=== PATIENT | female | born 1980 | race Caucasian/White ===

== ENCOUNTER → 2016-10-28 | Outpatient (CLI) | payer OTHER ==
[~2016-10-28] MED LIST: BCPILLS PO; BUPR-83 PO; MISCCAP80; MTR600X PO; OMEG10007 PO; OXYC-57 PO; PRENTAB26 PO; RABE20TA5 PO; ZNTT/150 PO
[2016-10-28 16:40] LABS: HEMATOCRIT 36.3 % (37-47)
[2016-10-28 19:29] LABS: GTGD 50 Grams
== END | disposition home or self-care (01) ==
LOC: C.LAB1850 15:25
PROVIDERS: ATTEND Obstetrics & Gynecology
DX: O09.513 Supervision of elderly primigravida, third trimester (principal); Z3A.00 Weeks of gestation of pregnancy not specified

== ENCOUNTER → 2016-10-28 | Outpatient (CLI) | payer OTHER ==
[2016-10-28 20:18] LABS: URINE APPEARANCE CLEAR (CLEAR); URINE BILIRUBIN NEG (NEG); URINE COLOR YELLOW; URINE EPITHELIAL CELL AUTO >30 /lpf (0-5); URINE NITRITE NEG (NEG); URINE PH 5.5 (4.5-7.5); URINE SPECIFIC GRAVITY 1.012 (1.000-1.030); UROBILINOGEN NEG (NEG)
[2016-10-28 20:19] LABS: MANUAL MICROSCOPIC REQUIRED? NO; REVIEW REQ? NO
== END | disposition home or self-care (01) ==
LOC: C.LABSPEC 18:22
PROVIDERS: ATTEND Obstetrics & Gynecology
DX: O09.513 Supervision of elderly primigravida, third trimester (principal); Z3A.00 Weeks of gestation of pregnancy not specified

== ENCOUNTER → 2016-11-01 | Outpatient (CLI) | payer OTHER | END | disposition home or self-care (01) | LOC: C.LAB1850 14:20 | PROVIDERS: ATTEND Obstetrics & Gynecology | DX: Z20.828 Contact with and (suspected) exposure to other viral communicable diseases (principal) ==

== ENCOUNTER → 2016-11-10 | Outpatient (CLI) | payer OTHER | END | disposition home or self-care (01) | LOC: C.LAB1850 07:07 | PROVIDERS: ATTEND Obstetrics & Gynecology | DX: O28.9 Unspecified abnormal findings on antenatal screening of mother (principal) ==

== ENCOUNTER → 2016-12-23 | Outpatient (CLI) | payer OTHER | END | disposition home or self-care (01) | LOC: C.LABSPEC 17:54 | PROVIDERS: ATTEND Obstetrics & Gynecology | DX: O09.513 Supervision of elderly primigravida, third trimester (principal); Z3A.00 Weeks of gestation of pregnancy not specified ==

== ENCOUNTER 2017-01-20 03:03 | Inpatient (IN) | payer OTHER ==
[~2017-01-20] VITALS: Ht 167.6 cm; Wt 77.3 kg
[~2017-01-20 03:03] MED LIST changes: -BUPR-83 PO; -MISCCAP80; -MTR600X PO; -OMEG10007 PO; -OXYC-57 PO; -PRENTAB26 PO; -RABE20TA5 PO; -ZNTT/150 PO
[2017-01-26] MEDS ORDERED: LACTATED RINGER'S 1000ML 1,000 ML IV PRN (14:32)
[2017-01-26 14:58] LABS: HEMATOCRIT 37.6 % (37-47); MEAN CELL VOLUME 88.9 fL (80-100); MEAN CORPUSCULAR HEMOGLOBIN 31.9 pg (25-34); MEAN CORPUSCULAR HGB CONC 35.9 g/dl (32-36); MEAN PLATELET VOLUME 10.2 fL (7.4-10.4); PLATELET COUNT 158 K/uL (130-400); RED BLOOD COUNT 4.23 M/uL (4.2-5.4); WHITE BLOOD COUNT 10.31 K/uL (4.8-10.8)
[2017-01-26] MEDS ORDERED: RABE20TA5 PO (15:47)
[2017-01-26] MEDS ORDERED: BUPR-83 PO (15:47)
[2017-01-26] MEDS ORDERED: ZNTT/150 PO (15:47)
[2017-01-26] MEDS ORDERED: PRENTAB26 PO (15:47)
[2017-01-26] MEDS ORDERED: OMEG10007 PO ×2 (15:48→15:49)
[2017-01-26] MEDS ORDERED: MISCCAP80 (15:49)
[2017-01-26 15:51] VITALS: Ht 167.6 cm; Wt 77.3 kg
[2017-01-26] MEDS ORDERED: LACTATED RINGER'S 1000ML 500 ML IV PRN (23:00)
[2017-01-26] MEDS ORDERED: OXYTOCIN 30 UNITS/500ML NSS IV PRN (23:00)
[2017-01-26] MEDS: LACTATED RINGER'S 1000ML 1,000 ML IV SCH (23:08)
[2017-01-27] VITALS (12 sets, daily range): BP systolic 102–137; BP diastolic 63–73; PULSE 92–106; TEMP 36.8–37; O2SAT 94–97
[2017-01-27] MEDS ORDERED: EpHEDrine SULFATE INJ 50 MG/ML AMP ONE (01:09)
[2017-01-27] MEDS ORDERED: BUPIVACAINE 0.25% 30 ML VIAL ONE (01:09)
[2017-01-27] MEDS ORDERED: FENTANYL CITRATE INJ 50 MCG/1 ML 2 ML VIAL ONE (01:10)
[2017-01-27] MEDS ORDERED: FENTANYL 2MCG/ML ROPIV 1.25MG/ML 100ML BAG EPI ONE (01:11)
[2017-01-27] MEDS ORDERED: LACTATED RINGER'S 1000ML 500 ML IV PRN ×2 (01:49→09:42)
[2017-01-27] MEDS: LACTATED RINGER'S 1000ML 1,000 ML IV SCH ×2 (01:52→05:46)
[2017-01-27] MEDS ORDERED: NALOXONE HCL INJ 0.4 MG/1 ML VIAL/CARP IV PRN (02:00)
[2017-01-27] MEDS ORDERED: DiphenhydrAMINE HCL 50 MG/ML VIAL IV PRN ×2 (02:00→09:45)
[2017-01-27] MEDS ORDERED: FENTANYL 2MCG/ML ROPIV 1.25MG/ML 100ML BAG EPI PRN (02:00)
[2017-01-27] MEDS ORDERED: NALBUPHINE HCL INJ 10 MG/ML AMP IV PRN ×2 (02:00→09:45)
[2017-01-27] MEDS ORDERED: ONDANSETRON INJ 2 MG/ML 2 ML VIAL IV PRN ×2 (02:00→09:45)
[2017-01-27] MEDS ORDERED: EpHEDrine SULFATE INJ 50 MG/ML AMP IV PRN ×2 (02:00→09:45)
[2017-01-27] MEDS ORDERED: LACTATED RINGER'S 1000ML 1,000 ML IV SCH ×2 (09:17→10:59)
[2017-01-27] MEDS ORDERED: CITRIC ACID/SODIUM CITRATE 15 ML UDC PO ONE (09:30)
[2017-01-27] MEDS ORDERED: OXYTOCIN INJ 10 UNITS/ML VIAL ONE (09:36)
[2017-01-27] MEDS ORDERED: MoRPHine SULFATE PF 1 MG/ML 10 ML AMP/VIAL ONE (09:37)
[2017-01-27] MEDS ORDERED: SODIUM CHLORIDE 0.9% 1000ML 1,000 ML IV PRN (09:42)
[2017-01-27] MEDS ORDERED: NALOXONE HCL INJ 1 MG in SODIUM CHLORIDE 0.9% 1000ML 1,000 ML IV PRN (09:42)
[2017-01-27] MEDS ORDERED: NALOXONE HCL INJ 0.08 MG in SYRINGE 1.8 ML IV PRN (09:42)
[2017-01-27] MEDS ORDERED: NALOXONE HCL 0.4 MG/1 ML VIAL/CARP IV PRN (09:45)
[2017-01-27] MEDS ORDERED: CEFAZOLIN IV 2,000 MG in DEXTROSE 5% 50ML 50 ML IV SCH (09:45)
[2017-01-27] MEDS ORDERED: NO NARCOTICS OR SEDATIVES SCH (09:45)
[2017-01-27] MEDS ORDERED: MoRPHine SULFATE PF 1 MG/ML 10 ML AMP/VIAL EPI PRN (09:45)
--- NOTE | 2017-01-27 09:45 | HISTORY & PHYSICAL EXAMINATION ---
DATE OF ADMISSION: 01/26/2017 HISTORY OF PRESENT ILLNESS: Kaila was seen in the office by myself on 01/26/2017 with oligohydramnios. She was sent to the labor and delivery for induction and Dr. Cooper initiated induction. At the time of sign over on 01/27/2017 at 8:30 in the morning I assessed the patient, she was 5 cm at most, and -1 station. heart rate was category 2, although there were many reassuring signs such as response to scalp stimulus with acceleration. Pitocin had been running although contraction pattern was also not perfect. Contractions were approximately every 3-4 minutes. The patient then had a prolonged decel and was reassessed an hour later. The cervix was still 5 cm. With the essential lack of progress and the prolonged decels I stopped Pitocin and patient was given oxygen and fluid bolus. I offered the patient to continue labor; however, with the concern for oligohydramnios, potential placental insufficiency and also the lack of progress the cervix has been 5 cm since approximately 2:30 in the morning despite oxytocin I have recommended . We offered the chance of waiting 30 minutes to restart Pitocin, patient declines this option. Discussed the risks of including but not limited to the risks of bleeding, infection, injury to bowel, bladder, ureters, vessels, deep vein thrombosis, pulmonary embolus and injury to the baby. Discussed slightly increased risks of infection, especially in labor with ruptured membranes. PAST MEDICAL HISTORY: The patient is healthy. PAST SURGICAL HISTORY: No prior pregnancies. SOCIAL HISTORY: Nonsmoker, nondrinker. FAMILY HISTORY: Negative. REVIEW OF SYSTEMS: Negative. PHYSICAL EXAMINATION: VITAL SIGNS: Stable. She is afebrile. CHEST EXAMINATION: Clear. CARDIOVASCULAR EXAMINATION: Normal rate and rhythm. No audible murmur. ABDOMEN: Gravid. PELVIS: Cervix 5 cm, modest molding palpated and -1 station. IMPRESSION AND PLAN: As reviewed discussed risks and benefits and the patient chooses for failure to progress and failure to tolerate labor.
[2017-01-27] MEDS ORDERED: ONDANSETRON INJ 2 MG/ML 2 ML VIAL ONE (10:39)
[2017-01-27] MEDS ORDERED: SENNA 8.6 MG TAB PO PRN (11:00)
[2017-01-27] MEDS ORDERED: BENZOCAINE 20% AER SPR 82.5 GM CAN EXT PRN (11:00)
[2017-01-27] MEDS ORDERED: LANOLIN OINT EXT PRN ×2 (11:00)
[2017-01-27] MEDS ORDERED: MAGNESIUM HYDROXIDE SUSP 30 ML UDC PO PRN (11:00)
[2017-01-27] MEDS ORDERED: HYDROCORTISONE ACETATE 25 MG SUPP PR PRN (11:00)
[2017-01-27] MEDS ORDERED: SUPERCREAM 0.870 % 15GM JAR EXT PRN (11:00)
--- NOTE | 2017-01-27 11:02 | [facility] Post Operative Brief Note ---
Immediate Operative Summary Operative Date January 27, 2017. Pre-Operative Diagnosis Failure to progress. Failure to tolerate labor. Oligohydraminos. Post-Operative Diagnosis Same as above. Procedure(s) Performed Lower uterine transverse primary caesarean section. Delivery of live male child at 1014. Surgeon Dr[address] Álvarez Senior Asp Net Developer Surgeon(s) Alejandra Suarez RN Estimated Blood Loss 400cc Findings Normal anatomy Specimens A: Placenta - hold B: Cord blood C: Cord gasses Drains Pearce Anesthesia Epidural Complication(s) None Disposition L&D
--- NOTE | 2017-01-27 11:07 | Anesthesiology Progress Note ---
Anesthesia Post Op Note Date & Time January 27, 2017 at 11:07 Vital Signs Pain Intensity: 0.0 Notes Mental Status: alert / awake / arousable, participated in evaluation Pt Amnestic to Procedure: Yes Nausea / Vomiting: adequately controlled Pain: adequately controlled Airway Patency, RR, SpO2: stable & adequate BP & HR: stable & adequate Hydration State: stable & adequate Anesthetic Complications: no major complications apparent
--- NOTE | 2017-01-27 11:08 | Anesthesia Procedure Note ---
Anesthesia Epidural Removal Nt Date & Time January 27, 2017 at 11:07 Vital Signs Pain Intensity: 0.0 Notes Notes: Epidural catheter removed in the O.R after .
[2017-01-27] MEDS: KETOROLAC TROMETHAMINE 30 MG/ML VIAL IV. PRN ×2 (12:39→18:22)
[2017-01-27] MEDS: OXYTOCIN INJ 20 UNITS in LACTATED RINGER'S 1000ML 1,000 ML IV SCH ×2 (12:51→22:26)
--- NOTE | 2017-01-27 13:00 | OPERATIVE REPORT ---
DATE OF OPERATION: 01/27/2017 PREOPERATIVE DIAGNOSES: fAILURE TO tolerate labor and oligohydramnios. POSTOPERATIVE DIAGNOSES: Same. PROCEDURE: Low segment transverse primary section. SURGEON: Dr. Álvarez. FACER OPERATOR: Alejandra Suarez RN ESTIMATED BLOOD LOSS: 400 mL. FINDINGS: Normal anatomy. SPECIMENS: Cord gases, cord blood. DRAINS: Pearce. ANESTHETIC: Epidural. COMPLICATIONS: None. DISPOSITION: Labor and delivery. Kaila had her epidural increased to allow section and Pearce catheter had been placed by nursing. She was prepped and draped in a supine position with a leftward tilt. incision was tested with pickups with teeth and found to be adequate. Ancef IV was given preoperatively and time out performed. Scalpel used to make a Pfannenstiel incision dissecting down through skin, through the subcutaneous fat to the fascia in the midline. Fascia dissected laterally with curved Mayos and then fascia released superiorly and inferiorly away from the rectus muscles with the curved Mayos. Rectus muscle split. Peritoneal cavity entered in a superior location. Opening then enlarged to allow exposure. Bladder retractor placed. Once the bladder retractor placed, we observed the bladder flap. Metzenbaums used to dissect away the bladder flap, then bladder retractor repositioned. Low transverse incision made on the uterus. Entry into the uterine cavity was actually done bluntly with a hemostat and then incision extended in the usual fashion with the guillotine operator's fingers. There was some minimal meconium. There was also a loose nuchal cord. Baby was delivered by first flexing the head, elevating the head out of the pelvis and then pressure on the abdomen by the drafter assistant. There were no difficulties in delivery and no excessive force used. Mouth suctioned, then nares with bulb. Live vigorous male infant. Cord clamped and cut. Cord gases obtained. Cord blood obtained. IV Pitocin started. Baby was handed to pediatrics. Placenta was removed manually and then uterus was exteriorized. We ensured with a moist lap all placental material was removed. There was no uterine extension. Uterus was then closed with usual fashion, a running 0 Monocryl locked and a second reinforcing 0 Monocryl layer nonlocked. The Pitocin had increased the uterine tone and hemostasis was much improved. There was some ooziness to the anterior serosal area above the incision line. Because of this I decided to place FloSeal. Prior to this, we irrigated and suctioned the cul-de-sac and anterior bladder flap regions reinspected and placing the uterus which had been exteriorized for the closure back into the peritoneal cavity and again there was some minimal ooziness, because of this we placed FloSeal on this and this improved things dramatically. At this stage, we then closed the fascia with 0 Vicryl. Subcutaneous fat was then irrigated with saline and then closed with 3-0 Vicryl, skin closed with 4-0 subcuticular Monocryl. Sponge and instrument counts correct. Urine was clear at the end of the procedure. The patient sent to labor and delivery recovery in stable condition. I attest to the content of the Intraoperative Record and any orders documented therein. Any exceptions are noted below. MTDD
[2017-01-27] MEDS: MoRPHine SULFATE 2 MG/ML CARP IV PRN ×2 (15:45→22:31)
[2017-01-27] MEDS: SIMETHICONE 80 MG CHEW PO SCH ×2 (16:57→20:13)
[2017-01-27] MEDS: DOCUSATE SODIUM 100 MG CAP PO SCH (20:13)
[2017-01-28] VITALS (19 sets, daily range): BP systolic 99–116; BP diastolic 63–75; PULSE 73–92; TEMP 36.5–36.9; O2SAT 93–98
[2017-01-28] MEDS: KETOROLAC TROMETHAMINE 30 MG/ML VIAL IV. PRN ×2 (03:08→09:07)
[2017-01-28] MEDS: OXYTOCIN INJ 20 UNITS in LACTATED RINGER'S 1000ML 1,000 ML IV SCH (05:47)
[2017-01-28 06:26] LABS: BASO % 0.1 %; BASO ABS # 0.01 K/uL (0-0.2); COMPLETE YES; EOS % 0.2 %; HEMATOCRIT 31.9 % (37-47); IG% 0.4 %; LYMPH % 4.5 %; LYMPH ABS # 0.77 K/uL (1.2-3.4); MEAN CELL VOLUME 90.4 fL (80-100); MEAN CORPUSCULAR HEMOGLOBIN 31.7 pg (25-34); MEAN CORPUSCULAR HGB CONC 35.1 g/dl (32-36); MEAN PLATELET VOLUME 9.9 fL (7.4-10.4); MONO % 9.5 %; NEUT % 85.3 %; PLATELET COUNT 128 K/uL (130-400); RED BLOOD COUNT 3.53 M/uL (4.2-5.4); WHITE BLOOD COUNT 17.03 K/uL (4.8-10.8)
--- NOTE | 2017-01-28 06:46 | Progress Note ---
Subjective January 28, 2017. Subjective conversation w/ patient, physical exam, chart review, lab review Voiding: henry catheter in place Diet Tolerance: Regular Diet Lochia: Small Feeding Type: Breast Feeding Objective Vital Signs Date Time Temp Pulse Resp B/P Pulse Ox O2 Delivery O2 Flow Rate FiO2 01/28/17 05:22 18 97 01/28/17 04:49 18 95 01/28/17 04:10 18 98 01/28/17 04:00 36.7 92 18 104/66 01/28/17 03:10 18 97 01/28/17 02:30 18 97 01/28/17 02:00 18 97 01/28/17 01:45 18 98 01/28/17 01:15 18 94 01/28/17 00:15 18 93 01/27/17 23:15 36.9 102 18 102/63 96 Room Air 01/27/17 23:15 18 96 01/27/17 23:15 96 Room Air 01/27/17 22:50 16 95 01/27/17 21:50 16 94 01/27/17 20:50 16 95 01/27/17 19:50 20 96 01/27/17 18:50 16 95 01/27/17 17:50 16 96 01/27/17 16:50 20 96 01/27/17 15:50 20 96 01/27/17 15:30 97 Room Air 01/27/17 15:30 37.0 92 16 115/69 97 Room Air 01/27/17 14:50 16 97 01/27/17 13:50 18 95 01/27/17 13:50 36.8 106 18 137/73 Room Air Physical Exam General Appearance: WELL-APPEARING Abdomen: non tender Fundus: Firm Incision Description: Clean, Dry & Intact Extremities: no calf tenderness Laboratory Results Last 24 Hours Test 01/28/17 06:04 White Blood Count 17.03 K/uL Red Blood Count 3.53 M/uL Hemoglobin 11.2 g/dL Hematocrit 31.9 % Mean Corpuscular Volume 90.4 fL Mean Corpuscular Hemoglobin 31.7 pg Mean Corpuscular Hemoglobin Concent 35.1 g/dl Platelet Count 128 K/uL Mean Platelet Volume 9.9 fL Neutrophils (%) (Auto) 85.3 % Lymphocytes (%) (Auto) 4.5 % Monocytes (%) (Auto) 9.5 % Eosinophils (%) (Auto) 0.2 % Basophils (%) (Auto) 0.1 % Neutrophils # (Auto) 14.53 K/uL Lymphocytes # (Auto) 0.77 K/uL Monocytes # (Auto) 1.62 K/uL Eosinophils # (Auto) 0.04 K/uL Basophils # (Auto) 0.01 K/uL RDW Standard Deviation 43.1 fL RDW Coefficient of Variation 13.2 % Immature Granulocyte % (Auto) 0.4 % Immature Granulocyte # (Auto) 0.06 K/uL Assessment and Plan Problem List Medical Problems: (1) Acute bronchitis Status: Acute Post-Op Day#: 1 Continue Routine Care: Meds ordered. Doing well. Ambulation, advance diet today. NELLIE
[2017-01-28] MEDS: DOCUSATE SODIUM 100 MG CAP PO SCH ×2 (07:51→19:44)
[2017-01-28] MEDS: PRENATAL VITAMIN TAB PO SCH (07:51)
[2017-01-28] MEDS: BuPROPion XL 150 MG TABCR PO SCH (07:51)
[2017-01-28] MEDS: RANITIDINE HCL 150 MG TAB PO SCH (07:51)
[2017-01-28] MEDS: SIMETHICONE 80 MG CHEW PO SCH ×4 (07:52→19:44)
[2017-01-28] MEDS: MoRPHine SULFATE 2 MG/ML CARP IV PRN (10:55)
[2017-01-28] MEDS ORDERED: PROMETHAZINE HCL INJ 25 MG in SODIUM CHLORIDE 0.9% 50ML 50 ML IV PRN (12:00)
[2017-01-28] MEDS ORDERED: ONDANSETRON INJ 2 MG/ML 2 ML VIAL IV PRN (12:00)
[2017-01-28] MEDS ORDERED: MEPERIDINE HCL 50 MG/ML CARP IV PRN ×2 (12:00)
[2017-01-28] MEDS ORDERED: DC INTRASPINAL MORPHINE ONE (12:00)
[2017-01-28] MEDS ORDERED: DiphenhydrAMINE HCL 50 MG/ML VIAL IV PRN (12:00)
[2017-01-28] MEDS ORDERED: ZOLPIDEM TARTRATE 5 MG TAB PO PRN (12:00)
[2017-01-28] MEDS ORDERED: OXYCODONE/ACETAMINOPHEN 5-325 TAB PO PRN (12:00)
[2017-01-28] MEDS ORDERED: KETOROLAC TROMETHAMINE 30 MG/ML VIAL IV. PRN (12:00)
[2017-01-28] MEDS ORDERED: NURSING VERBAL MED ORDER ONE (13:30)
[2017-01-28] MEDS: OXYCODONE/ACETAMINOPHEN 5-325 TAB PO PRN ×3 (14:25→23:12)
[2017-01-28] MEDS: IBUPROFEN 600 MG TAB PO PRN ×3 (14:25→23:11)
[2017-01-28] MEDS ORDERED: BISACODYL 5 MG TABEC PO ONE (22:00)
[2017-01-29] MEDS: OXYCODONE/ACETAMINOPHEN 5-325 TAB PO PRN ×4 (05:33→19:31)
[2017-01-29] MEDS: IBUPROFEN 600 MG TAB PO PRN ×4 (05:34→19:31)
--- NOTE | 2017-01-29 06:51 | Progress Note ---
Subjective January 29, 2017. Subjective conversation w/ patient, physical exam Ambulation: ambulating normally Voiding: no voiding problems Passing Gas: Yes Diet Tolerance: Regular Diet Lochia: Small Pain: no pain issues Objective Vital Signs Date Time Temp Pulse Resp B/P Pulse Ox O2 Delivery O2 Flow Rate FiO2 01/28/17 23:20 36.5 83 18 116/75 Room Air 01/28/17 23:20 Room Air 01/28/17 16:00 36.9 87 16 111/67 Room Air 01/28/17 16:00 Room Air 01/28/17 11:36 36.8 73 16 99/63 98 Room Air 01/28/17 11:00 18 97 01/28/17 10:00 18 97 01/28/17 09:00 16 95 01/28/17 08:05 36.9 81 14 107/70 96 Room Air 01/28/17 07:40 16 97 01/28/17 07:40 97 Room Air Physical Exam General Appearance: WELL-APPEARING, WD/WN, NO APPARENT DISTRESS Respiratory/Chest: lungs clear Cardiovascular: regular rate, rhythm Abdomen: non tender, soft Fundus: Firm, Relation to Umbilicus ( 2 down) Incision Description: Clean, Dry & Intact (with steris) Extremities: non-tender Laboratory Results Last 24 Hours Test 01/29/17 06:30 Assessment and Plan Problem List Medical Problems: (1) Acute bronchitis Status: Acute Post-, Post-Op Day#: 2 Continue Routine Care: stable, routine care, h/h pending.
[2017-01-29 06:54] LABS: HEMATOCRIT 33.4 % (37-47)
[2017-01-29 08:00] VITALS: BP 120/74; PULSE 89; TEMP 36.9; O2SAT 98
[2017-01-29] MEDS: SIMETHICONE 80 MG CHEW PO SCH ×3 (09:00→19:30)
[2017-01-29] MEDS: BuPROPion XL 150 MG TABCR PO SCH (09:00)
[2017-01-29] MEDS: ACIPHEX 20 MG PO SCH (09:01)
[2017-01-29] MEDS: DOCUSATE SODIUM 100 MG CAP PO SCH ×2 (09:01→19:30)
[2017-01-29] MEDS: PRENATAL VITAMIN TAB PO SCH (09:01)
[2017-01-29] MEDS: RANITIDINE HCL 150 MG TAB PO SCH (09:04)
[2017-01-29] MEDS ORDERED: BISACODYL 10 MG SUPP PR PRN (11:00)
[2017-01-29 15:05] VITALS: BP 119/72; PULSE 92; TEMP 36.6; O2SAT 99
[2017-01-29 23:10] VITALS: BP 127/81; PULSE 87; TEMP 36.8; O2SAT 99
[2017-01-30] MEDS: OXYCODONE/ACETAMINOPHEN 5-325 TAB PO PRN ×3 (00:05→13:10)
[2017-01-30] MEDS: IBUPROFEN 600 MG TAB PO PRN ×4 (00:05→13:09)
--- NOTE | 2017-01-30 06:54 | Progress Note ---
Subjective January 30, 2017. Subjective conversation w/ patient, physical exam Voiding: no voiding problems Feeding Type: Breast Feeding Objective Vital Signs Date Time Temp Pulse Resp B/P Pulse Ox O2 Delivery O2 Flow Rate FiO2 01/29/17 23:10 36.8 87 18 127/81 99 Room Air 01/29/17 23:10 99 Room Air 01/29/17 15:05 36.6 92 18 119/72 99 Room Air 01/29/17 15:05 99 Room Air 01/29/17 08:00 98 Room Air 01/29/17 08:00 36.9 89 16 120/74 98 Room Air Physical Exam General Appearance: WELL-APPEARING, NO APPARENT DISTRESS Abdomen: + pertinent finding (erythematous rash, ) Fundus: Firm, Non-Tender Incision Description: Clean, Dry & Intact Extremities: no calf tenderness Assessment and Plan Problem List Medical Problems: (1) Acute bronchitis Status: Acute Post-, Post-Op Day#: 3 Continue Routine Care: - doing well - rash on abdomen, non-pruritic - ? reaction to abdominal prep - pt desires d/c - instructions/Rx given - f/u in 6 weeks
[2017-01-30] MEDS ORDERED: MTR600X PO (06:56)
[2017-01-30] MEDS ORDERED: OXYC-57 PO (06:56)
--- NOTE | 2017-01-30 06:57 | Discharge Instructions ---
Discharge Instructions Date of Service January 30, 2017. Admission Reason for Admission: Induction Discharge Discharge Diagnosis / Problem: same Discharge Goals Goal(s): Routine recovery after Activity Recommendations Activity Limitations: as noted below . Instructions / Follow-Up Instructions / Follow-Up ACTIVITY RECOMMENDATIONS: * Gradual return to full activity over the next 2-3 weeks. * No lifting - nothing heavier than baby over the next 2-3 weeks. * Do not engage in vigorous exercise, sexual activity or sports until cleared by your physician. * Do not drive or operate any motorized equipment until cleared by your physician. * You may shower/bathe daily. MEDICATIONS: For discomfort or pain, you may use Acetaminophen (Tylenol), Ibuprofen (Advil), or Naproxen (Aleve) following the package directions. For constipation you may use Colace following the package directions. BREAST CARE: If you are not breast feeding: * Wear a supportive bra 24 hours a day for one to two weeks. * Avoid stimulating your breasts and nipples as much as possible during the first few weeks after delivery. * When taking a shower, have the warm water hit your back, not breasts. * When your breasts feel full, apply ice packs. Usually three to four times a day helps ease the discomfort. * Take a mild pain medication (Tylenol / Motrin) when you are uncomfortable. If breast feeding: * Use breast milk to lubricate nipples. Lansinoh cream may be used for sore nipples. You do not need to remove cream prior to breast feeding. If using a different brand of cream, check the label for directions regarding removal of cream prior to nursing. * Wear a supportive bra. * If having problems with breasts or breast feeding, call a microsoft bi consultant or your health care provider. SPECIAL CARE INSTRUCTIONS: When you are discharged from the hospital, it is important for you to follow the instructions listed below: * During the first week at home, you should be able to care for yourself and your baby. In addition, the usual light household activities are encouraged. * Limit your activities to the way you feel. Do not try to clean the house or move furniture. Be sensible. * If you actively engage in sports and have done so up until the time of your delivery, you may resume these activities as soon as you feel able. This may take up to one month or even longer. Use good judgment. * Continue to take your vitamins for at least six weeks after the of your baby. * Your diet need not be limited unless you were on a special diet before your delivery. Breast-feeding mothers need around 2500 calories per day and at least 64-80 ounces of fluid per day (8 to 10 glasses). * You should eat foods from the four major food groups. Crash diets or fad diets are to be avoided. Eating lean meats, fresh fruits and vegetables, low-fat dairy products, high fiber foods and a regular exercise program, will help you get back to your pre- weight without putting your health at risk. * Constipation is sometimes a problem after delivery. Take a mild laxative as needed. If breast feeding, Milk of Magnesia is acceptable to use. You may use a suppository or Fleets enema. * A daily shower or tub bath is suggested. Wash incision daily with warm soapy water and pat dry. It doesn't need to be covered unless drainage is present. * A bloody vaginal discharge will usually continue until around four weeks . A small amount of bleeding may continue for as long as six weeks. Vaginal discharge changes from the bright red bleeding after delivery to pink then brownish and finally yellowish-pink before becoming white and disappearing. * Bleeding may increase with activity. Your first period may come in 4-8 weeks. If you are breast feeding, your period may be delayed even longer. * [place] (sex) can begin whenever both you and your partner feel comfortable and do not have any form of genital infection. It is recommended that you wait at least six weeks for internal and external healing to occur. If you have questions, please talk to your health care practitioner. A condom should be used to prevent infection and . * Foreplay, gentle intercourse and lubrication is very important the first several times to prevent pain. A water-based lubricant such as K-Y jelly or Astroglide may be used. * If you have RH negative blood and your baby is RH positive, you will receive RHOGAM by injection prior to discharge. The nurse will give you a card to keep with you that has the date and place that you received RHOGAM after delivery. * During your care, you had a Rubella screen done to check for the presence of rubella antibodies in your blood. If your test was negative, you will receive a Rubella vaccine prior to discharge. This vaccine may cause a fever, soreness at the injection site and flu-like symptoms. If these symptoms persist, notify your health care practitioner. is not advised for one month after a Rubella vaccine. * Verbalizes understanding of car seat law as reviewed with patient nursing. * Car Seat hand-out given and reviewed with patient by nursing. * Shaken baby information reviewed with patient by nursing. Call you doctor if: * Heavy bleeding (saturating several pads an hour) or passing clots the size of your fist. * A fever >101 degrees F (38.3 degrees C) on two occasions four hours apart and /or chills. * Unusual pain in the pelvic or vaginal areas. * Call the doctor for any increased redness, drainage or swelling around the incision and any pain unrelieved by prescribed pain medication. * "Baby Blues" lasting longer than two weeks. If you have any questions or concerns, call your health care practitioner at . FOLLOW UP VISIT: * Please call the office at to schedule a 6 week examination. It is important you keep this appointment. It is important for you to make arrangements for either yearly or twice yearly check-ups thereafter. Current Hospital Diet Patient's current hospital diet: Regular Diet Discharge Diet Recommended Diet: Regular OB Diet Procedures Procedures Performed: Lower uterine transverse primary caesarean section. Delivery of live male child at 1014. Pending Studies Studies pending at discharge: no Medical Emergencies . Who to Call and When: Medical Emergencies: If at any time you feel your situation is an emergency, please call 911 immediately. . Non-Emergent Contact Non-Emergency issues call your: Septic Tank Service Technician Call Non-Emergent contact if: you have a fever, temperature is above 100.5 . . "Provider Documentation" section prepared by Lemuel Pitts. . VTE Core Measure Inpt VTE Proph given/why not?: SCD's [place] Drug Monitoring Program Search Results: patient reviewed within database, no issues identified
[2017-01-30 07:48] VITALS: BP 123/74; PULSE 92; TEMP 36.8; O2SAT 97
[2017-01-30] MEDS: SIMETHICONE 80 MG CHEW PO SCH (08:45)
[2017-01-30] MEDS: BuPROPion XL 150 MG TABCR PO SCH (08:45)
[2017-01-30] MEDS: DOCUSATE SODIUM 100 MG CAP PO SCH (08:45)
[2017-01-30] MEDS: RANITIDINE HCL 150 MG TAB PO SCH (08:45)
[2017-01-30] MEDS: PRENATAL VITAMIN TAB PO SCH (08:45)
[2017-01-30] MEDS: ACIPHEX 20 MG PO SCH (08:45)
[2017-01-30 13:40] VITALS: BP_DIAS 74; PULSE 92; TEMP 36.8
--- NOTE | 2017-02-01 15:27 | DISCHARGE SUMMARY ---
HISTORY: Swathi had a section on January 27. Operative note has been dictated. This was uncomplicated, course in hospital was uncomplicated as well. She was assessed on January 30, postop day #3, was assessed by Dr. Pitts. SUBJECTIVE: The patient was ambulating, no voiding problems. Pain was well controlled and no extremity pain. PHYSICAL EXAMINATION: VITAL SIGNS: Stable. She was afebrile. ABDOMEN: Had a rash with no sign of cellulitis. Fundus firm, nontender. Incision clean, dry and intact. EXTREMITIES: Negative. IMPRESSION AND PLAN: Postop day #3, discharged home on pain medication and told to follow up in the office.
== END 2017-01-30 13:40 | disposition home or self-care (01) | DRG 765 ==
LOC: C.LD 01-26 14:21 → C.OBG 01-27 14:13
PROVIDERS: ADMIT Obstetrics & Gynecology; ATTEND Obstetrics & Gynecology
PROC: 3E033VJ Introduction of Other Hormone into Peripheral Vein, Percutaneous Approach (ICD-10-PCS; principal; 2017-01-26)
PROC: 10D00Z1 Extraction of Products of Conception, Low, Open Approach (ICD-10-PCS; 2017-01-27)
DX: O66.40 Failed trial of labor, unspecified (principal); O41.03X0 Oligohydramnios, third trimester, not applicable or unspecified; Z37.0 Single live birth; O48.0 Post-term pregnancy; Z3A.41 41 weeks gestation of pregnancy

== ENCOUNTER → 2017-03-10 | Outpatient (CLI) | payer OTHER ==
[~2017-03-10] MED LIST changes: -BCPILLS PO; +BUPR-83 PO; +MISCCAP80; +MTR600X PO; +OMEG10007 PO; +OXYC-57 PO; +PRENTAB26 PO; +RABE20TA5 PO; +ZNTT/150 PO
== END | disposition home or self-care (01) ==
LOC: C.PAPS 13:38
PROVIDERS: ATTEND Obstetrics & Gynecology
DX: Z39.2 Encounter for routine postpartum follow-up (principal)

== ENCOUNTER → 2018-04-18 | Outpatient (CLI) | payer OTHER ==
[~2018-04-18] MED LIST changes: +RANI150T85 PO; -ZNTT/150 PO
== END | disposition home or self-care (01) ==
LOC: C.PAPS 18:47
PROVIDERS: ATTEND Obstetrics & Gynecology
DX: Z12.4 Encounter for screening for malignant neoplasm of cervix (principal)